=== PATIENT | male | born 1950 | race Caucasian/White ===

== ENCOUNTER → 2020-06-12 | Outpatient (CLI) | payer MEDICARE, BC ==
[~2020-06-12] MED LIST: ANTIVERT 25MG25 MG PO; ANUSOL-HC SUPPO25 MG RC; ASPIRIN 32325 MG/TAB PO; CARAFATE 1GM1 G PO; LISINOPRIL20 MG PO; METOPROLOL50 MG PO; NEXIUM 40MG40 MG PO; PRILOSEC 20MG20 MG PO
== END ==
LOC: COL.LAB 08:33
DX: H57.89 Other specified disorders of eye and adnexa (principal); J02.9 Acute pharyngitis, unspecified; Z20.828 Contact with and (suspected) exposure to other viral communicable diseases